=== PATIENT | female | born 1980 | race Caucasian/White ===

== ENCOUNTER 2018-04-18 23:32 | Emergency (ER) | payer OTHER ==
[~2018-04-18] VITALS: Ht 160 cm; Wt 56.3 kg
[~2018-04-18 23:32] MED LIST: ALBUTEROL SULF8.5 GM IH; Asacol PO; BENTYL10 MG PO; COLAZAL750 MG PO; FLAGYL250 MG PO; Flagyl PO; IMURAN50 MG PO; OXYCODONE HCL5 MG PO; PREDNISONE10 MG PO; PREDNISONE5 MG PO; PROVENTIL,200 INHALA IH; Protonix PO; SKELAXIN800 MG PO; TRAMADOL HCL50 MG PO; ULTRAM50 MG PO; Ultram PO; ZOFRAN ODT4 MG PO; oxyCODONE PO; predniSONE PO
[2018-04-18 23:57] LABS: HEMATOCRIT 43.4 % (36.0-46.0); HEMOGLOBIN 14.2 G/DL (11.9-15.5); MCHC 32.7 G/DL (30.0-36.0); MCV 88.8 FL (83-99); RBC DIS.WIDTH-CV 13.2 % (11.8-14.6); RBC DIS.WIDTH-SD 43.2 % (39-53); RED BLOOD COUNT 4.89 M/uL (3.80-5.20); WHITE BLOOD COUNT 6.2 K/uL (4.1-10.2)
[2018-04-19 00:05] LABS: ALBUMIN 4.1 g/dL (3.2-4.8); CHLORIDE 104 mEq/L (99-109); POTASSIUM 3.9 mEq/L (3.7-5.4); SODIUM 140 mEq/L (136-147)
[2018-04-19 00:07] LABS: GLUCOSE 104 mg/dL (70-99); TOTAL PROTEIN 7.7 g/dL (6.4-8.3)
[2018-04-19 00:09] LABS: TOTAL BILIRUBIN 0.5 mg/dL (0.0-1.0)
[2018-04-19 00:10] LABS: ALKALINE PHOSPHATASE 69 IU/L (3-129)
[2018-04-19 00:11] LABS: CREATININE 0.8 mg/dL (0.6-1.3); GFR ESTIMATE (CALCULATED) > 59 mL/min/
[2018-04-19 00:12] LABS: AST (GOT) 18 IU/L (2-34); UREA NITROGEN (BUN) 12 mg/dL (9-23)
[2018-04-19 00:14] LABS: ALT (GPT) 17 IU/L (3-49); LIPASE 23 U/L (1.0-51.0)
[2018-04-19 00:20] LABS: QUANTITATIVE HCG < 4.0 MIU/ML
[2018-04-19 00:52] LABS: PLAT.SUFFICIENCY ADEQUATE; PLATELET COUNT 250 K/uL (156-360)
[2018-04-19 02:39] LABS: APPEARANCE CLEAR ((CLEAR)); BILIRUBIN NEGATIVE; BLOOD NEGATIVE; COLOR YELLOW ((YELLOW)); GLUCOSE (STRIP) NEGATIVE; KETONES NEGATIVE; LEUKOCYTES NEGATIVE; NITRITE NEGATIVE; PROTEIN (STRIP) NEGATIVE; SPECIFIC GRAVITY 1.044 (1.000-1.030); UCUL ADDED? NO; UROBILINOGEN 0.2 MG/DL (0.2-1.0)
[2018-04-19] MEDS ORDERED: ZOFRAN ODT4 MG PO (02:45)
[2018-04-19] MEDS ORDERED: BENTYL10 MG PO (02:45)
[2018-04-19 03:10] VITALS: BP 157/88
== END 2018-04-19 04:43 | disposition home or self-care (01) ==
LOC: EME 23:32
DX: K52.9 Noninfective gastroenteritis and colitis, unspecified (principal); R10.31 Right lower quadrant pain; Z88.5 Allergy status to narcotic agent; Z91.041 Radiographic dye allergy status
CPT/HCPCS: 74177; 80053; 81003; 83690; 84702; 85027; 99281; 99284; J1200; J2405; J3010; J7030